=== PATIENT | male | born 1985 | race Hispanic/Latino ===

== ENCOUNTER 2021-02-25 07:41 | Emergency (ER) | payer OTHER ==
[2021-02-25] MEDS ORDERED: Boostrix 0.5 ML (Tdap) VIAL ONE (07:47)
[2021-02-25] MEDS ORDERED: ceFAZolin 2 GM/DEX 5% 100 ML BAG ONE (07:47)
[2021-02-25] MEDS ORDERED: ceFAZolin Sodium/D5W 2 GM in Premix Bag 1 BAG IVPB SCH (08:00)
[2021-02-25 08:07] LABS: #Basophils 0.1 thou/uL (0.0-0.2); #Eosinphils 0.3 thou/uL (0.0-0.7); #Lymphocytes 2.8 thou/uL (1.20-3.40); #Monocytes 0.5 thou/uL (0.11-0.59); #Neutrophils 7.9 thou/uL (1.40-6.50); %Basophils 0.6 % (0.0-1.0); %Lymphocytes 24.2 % (21.0-51.0); %Neutrophils 68.3 % (42.0-75.0); Hemoglobin 13.9 g/dL (14.0-18.0); Mean Corpuscular HGB CONC 34.2 g/dL (32.0-36.0); Mean Corpuscular Hemoglobin 31.9 pg (27.0-31.0); Mean Corpuscular Volume 93.3 fL (78.0-98.0); Mean Platelet Volume 8.3 fL (7.4-10.4); Platelet Count 278 thou/uL (130-400); RBC Distribution Width 13.4 % (11.5-14.5); Red Blood Cell (RBC) Count 4.37 mill/uL (4.70-6.10); White Blood Cell (WBC) Count 11.6 thou/uL (4.8-10.8)
[2021-02-25 08:19] LABS: Prothrombin Time 13.2 sec (12.0-14.7)
[2021-02-25 08:20] LABS: PTT 25.3 sec (22.9-36.1)
[2021-02-25 08:26] LABS: ALT (SGPT) 43 U/L (8-55); AST (SGOT) 89 U/L (5-34); Albumin 3.8 g/dL (3.5-5.0); Alkaline Phosphatase 62 U/L (40-110); Anion Gap 15 mmol/L (10-20); BUN (Urea Nitrogen) 10 mg/dL (8.9-20.6); Bilirubin, Total 0.2 mg/dL (0.2-1.2); Calc. Creatinine Clearance 0 mL/min (70-130); Carbon Dioxide 21 mmol/L (22-29); Chloride 108 mmol/L (98-107); Globulin 3.1 g/dL (2.4-3.5); Glucose 163 mg/dL (70-105); Potassium 3.8 mmol/L (3.5-5.1); Protein, Total 6.9 g/dL (6.0-8.3); Sodium 140 mmol/L (136-145)
[2021-02-25] MEDS ORDERED: Lidocaine 1% w/Epinephrine 1:100K 20 ML VIAL ONE (08:26)
[2021-02-25] MEDS ORDERED: Bacitracin 1 PK ONE (09:31)
[2021-02-25] MEDS ORDERED: Iopamidol-370 76% 500 ML 1 ML ONE (09:35)
== END 2021-02-25 09:50 | disposition home or self-care (01) ==
LOC: ERS 07:41
DX: S51.812A Laceration without foreign body of left forearm, initial encounter (principal); S30.810A Abrasion of lower back and pelvis, initial encounter; R07.9 Chest pain, unspecified; V49.9XXA Car occupant (driver) (passenger) injured in unspecified traffic accident, initial encounter
CPT/HCPCS: 12002; 70450; 71260; 72125; 74177; 80053; 85025; 85610; 85730; 86850; 86900; 86901; 90471; 90715; 96365; 96366; G0390; Q9967